=== PATIENT | male | born 2000 | race Caucasian/White ===

== ENCOUNTER 2021-05-25 14:37 | Emergency (ER) | payer SELFPAY ==
[~2021-05-25] VITALS: Ht 188 cm; Wt 81.6 kg
[2021-05-25 15:39] LABS: CARBON DIOXIDE 32 mmol/L (21-32); CHLORIDE 100 mmol/L (98-107); GLUCOSE 122 mg/dL (74-106); HEMATOCRIT 38.4 % (36.7-47.1); MEAN CORPUSCULAR HEMOGLOBIN 31.3 uug (23.8-33.4); MEAN CORPUSCULAR VOLUME 90.3 fL (73.0-96.2); PLATELET COUNT (AUTO) 269 K/uL (152-348); POTASSIUM 3.3 mmol/L (3.5-5.1); UREA NITROGEN, BLOOD 8 mg/dL (7-18)
[2021-05-25 15:47] LABS: ETHANOL < 3 MG/DL (0-0)
[2021-05-25 15:56] LABS: ACETAMINOPHEN < 2.0 ug/mL (10-30); ALANINE AMINOTRANSFERASE 34 U/L (16-63); ALKALINE PHOSPHATASE 91 U/L (50-136); ASPARTATE AMINOTRANSFERASE 32 U/L (15-37); BILIRUBIN,DIRECT 0.1 mg/dL (0.0-0.2); BILIRUBIN,TOTAL 0.5 mg/dL (0.2-1.0)
[2021-05-25 15:58] LABS: THYROID STIMULATING HORMONE 0.467 mIU/mL (0.358-3.740)
--- NOTE | 2021-05-25 16:39 | NUR ---
Pt return to unit from radiology. Pt continues to be drowzy but responsive to stimuli and responding appropriately to questions. Awaiting results of labs and scan.
[2021-05-25 18:26] VITALS: BP 99/52
== END 2021-05-25 18:26 | disposition home or self-care (01) ==
LOC: ER 14:40
DX: T40.411A Poisoning by fentanyl or fentanyl analogs, accidental (unintentional), initial encounter (principal); R53.83 Other fatigue; F11.20 Opioid dependence, uncomplicated; Y92.410 Unspecified street and highway as the place of occurrence of the external cause; Z20.822 Contact with and (suspected) exposure to COVID-19; Z59.02 Unsheltered homelessness
CPT/HCPCS: 36415; 70030-TC; 70450; 71045; 84443; 85025; 85730; 93005; A4663; G0480